=== PATIENT | male | born 1985 | race Caucasian/White ===

== ENCOUNTER → 2018-03-18 16:20 | Outpatient (CLI) | payer OTHER, SELFPAY | PROVIDERS: PCP Physician Assistant; Visit Provider Physician Assistant | DX: L60.0 Ingrowing nail (principal) | CPT/HCPCS: 87070; 87077; 87147; 87186; 87205 ==

== ENCOUNTER 2025-02-05 11:46 | Emergency (ER) | payer OTHER, SELFPAY ==
[2025-02-05 11:54] VITALS: BP 127/68; PULSE 80; RESP 16; TEMP 36.4; O2SAT 100
--- NOTE | 2025-02-05 11:56 | EKG_ITS ---
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
--- NOTE | 2025-02-05 11:56 | ED.SYNCOPE ---
HPI - Syncope General Chief Complaint: Syncope Stated Complaint: Syncopal Episode Time Seen by Provider: 02/05/25 11:56 Source: patient Mode of arrival: EMS History of Present Illness HPI narrative: Patient is a 39-year-old male with history of Asperger's disorder presenting with syncopal episode. Patient states that he had not eaten much on the morning of presentation and had not had much water to drink although did endorse caffeine intake he was at mosque when he felt lightheaded and sat down, subsequently had a syncopal episode. Patient denies any traumatic injury incurred as he had already been seated. He does state that this has happened previously although not frequently. Patient denies any chest pain, shortness of breath, palpitations. He otherwise denies having been recently ill, no alcohol intake on the evening prior. MD complaint: loss of consciousness Description of event: tonic-clonic movements, focal shaking and incontinence Prodromal symptoms: lightheaded and nausea/vomiting Related Data Home Medications ?Medication ?Instructions ?Recorded ?Confirmed No Known Home Medications 03/18/18 04/17/21 Allergies Allergy/AdvReac Type Severity Reaction Status Date / Time No Known Allergies Allergy Uncoded 02/05/25 11:56 Review of Systems Review of Systems ROS Unobtainable: All systems reviewed & are unremarkable except as noted in HPI and below Constitutional Constitutional: Denies fever(s) and Denies frequent falls ENT Ears, Nose, Mouth, and Throat: Denies dizziness Cardiovascular Cardiovascular: Denies chest pain, Reports syncope and Denies dyspnea Respiratory Respiratory: Denies dyspnea Gastrointestinal Gastrointestinal: Denies nausea and Denies vomiting Genitourinary Genitourinary: Denies dysuria Musculoskeletal Musculoskeletal: Denies muscle weakness and Denies myalgias Neurologic Neurologic: Denies dizziness, Reports syncope and Denies frequent falls Patient History Social History Smoking Status: Never smoker second hand exposure: No alcohol intake: current substance use type: does not use Exam Narrative Exam Narrative: GENERAL: in no distress, not toxic not dyspneic HEAD: Normocephalic. EYES: Pupils equal round ENT: Mucous membranes moist. NECK: Trachea midline. CARDIOVASCULAR: Regular rate and rhythm RESPIRATORY: Clear to auscultation. Breath sounds equal bilaterally. No wheezes, rales, or rhonchi. GASTROINTESTINAL: Abdomen soft, non-tender EXTREMITIES: No gross deformities. BACK: No flank tenderness. NEURO: AOx4. Clear speech SKIN: Warm and dry PSYCH: Not anxious, is cooperative Initial Vital Signs Initial Vital Signs: Vital Signs Temperature 97.6 F 02/05/25 11:54 Pulse Rate 80 02/05/25 11:54 Respiratory Rate 16 02/05/25 11:54 Blood Pressure 127/68 02/05/25 11:54 Pulse Oximetry 100 02/05/25 11:54 Oxygen Delivery Method Room Air 02/05/25 11:54 Const General: cooperative, well developed, well groomed and No acute distress [facility] Head: normocephalic and atraumatic Course Orders Ordered: ED Orders 02/05/25 11:50 BMP [Basic Metabolic Panel] Stat CBC Auto Diff [Complete Blood Count AUTO DIFF] Stat 02/05/25 11:56 EKG-12 Lead Stat Discontinued Medications Potassium Chloride (Potassium Chloride 20 Meq Tab) 40 meq PO NOW ONE Stop: 02/05/25 12:46 Last Admin: 02/05/25 12:56 Dose: 40 meq Documented By: MARCELINA Vital Signs Vital signs: Vital Signs - 8 hr 02/05/25 13:05 Temperature 98.4 F Pulse Rate 86 Respiratory Rate 16 Blood Pressure 138/85 Pulse Oximetry 100 MDM - Syncope Differential Diagnosis Differential diagnosis: Likely syncope due to orthostatic hypotension, vasovagal syncope, complete atrioventricular block, pulmonary embolism and dehydration Lab Data Attestation: I reviewed the patient's lab results. Lab results narrative: Notable for hypokalemia at 3.1 and mild hyperglycemia at 119 -plan for potassium repletion 02/05/25 11:50 02/05/25 11:50 Labs: Lab Results 02/05/25 Range/Units 11:50 WBC 9.2 (4.5-11.0) X10^3/uL RBC 5.29 (4.5-5.9) X10^6/uL Hgb 15.9 (13.5-17.5) g/dL Hct 46.0 (41-53) % MCV 87.0 (80-100) fL MCH 30.0 (26-34) PG MCHC 34.5 (30-36) % RDW 13.1 (11.6-14.8) % Plt Count 435 H (150-400) X10^3/uL Neut % (Auto) 61.9 (50-75) % Lymph % (Auto) 30.5 (25-40) % Hendricks % (Auto) 5.7 (3-14) % Eos % (Auto) 1.3 L (2-4) % Baso % (Auto) 0.6 (0-2) % Neut # (Auto) 5700 (0658-5569) /uL Lymph # (Auto) 2800 (1804-8215) /uL Hendricks # (Auto) 500 (0-900) /uL Eos # (Auto) 100 (0-450) /uL Baso # (Auto) 100 (0-100) /uL Sodium 137 (137-145) mmol/L Potassium 3.1 L (3.4-5.1) mmol/L Chloride 101 (98-107) mmol/L Carbon Dioxide 24 (22-32) mmol/L BUN 12 (9-20) mg/dL Creatinine 0.81 (0.66-1.25) mg/dL Estimated GFR > 60 (>60) mL/min BUN/Creatinine Ratio 14.8 (6-22) Glucose 119 H (70-99) mg/dL Calcium 9.4 (8.4-10.2) mg/dL Point of Care Testing Glucose POC 93 ECG Data Attestation: I personally reviewed and interpreted this ECG as follows: Prior ECG tracings: available for review Interpretation: EKG demonstrating sinus rhythm at a rate of 76, OK 202, QTC 436, notable for nonspecific ST segment changes which are similar when compared to prior from 02/03/2017 on independent review MDM Narrative Medical decision making narrative: History and exam as above. Patient presenting with syncope most consistent with vasovagal versus hypovolemic syncope. In the setting of prodromal symptoms, less likely to represent cardiac pathology. Similarly no visualized seizure activity and patient was not postictal nor with incontinence or oral pharynx trauma. Differential for presentation includes anemia, electrolyte abnormality, arrhythmia. Without focal neurological deficits or risk factors suggestive of CVA, we will defer CT imaging. Discharge Plan Departure Patient Disposition: Home Clinical Impression: Vasovagal syncope, Hypokalemia Instructions: DI for Syncope in Adults (Fainting) Activity Restrictions/Additional Instructions: You were seen in the emergency department after your fainting episode. Evaluation here included examination, labs and EKG. You were noted to have slightly low potassium which we have repleted orally here however we do recommend increasing your dietary potassium for the next week and following up closely with your primary care provider for re-evaluation including repeat lab work. If you develop recurrent lightheadedness, palpitations, chest pain, syncope, or other symptoms that are concerning to you, please return to the emergency department for further evaluation. Prescriptions: No Action No Known Home Medications Referrals: Miscellaneous,Doctor, [Primary Care Provider, Medical] Stand Alone Forms: Patient Portal/API
[2025-02-05 12:08] LABS: Add Manual Diff / Slide Review NO; Hematocrit 46.0 % (41-53); Hemoglobin 15.9 g/dL (13.5-17.5); Lymphocytes Absolute Auto 2800 /uL (1100-4500); Mean Corpuscular HGB Conc 34.5 % (30-36); Mean Corpuscular Hemoglobin 30.0 PG (26-34); Mean Corpuscular Volume 87.0 fL (80-100); Platelet Count 435 X10^3/uL (150-400)
[2025-02-05 12:18] LABS: Blood Urea Nitrogen 12 mg/dL (9-20); Calcium 9.4 mg/dL (8.4-10.2); Carbon Dioxide 24 mmol/L (22-32); Chloride 101 mmol/L (98-107); Estimated Glomerular Filt Rate > 60 mL/min (>60); Glucose 119 mg/dL (70-99); HEMOLYSIS < 15 (0-50); Potassium 3.1 mmol/L (3.4-5.1); Sodium 137 mmol/L (137-145)
[2025-02-05] MEDS: POTASSIUM CHLORIDE 20 MEQ TAB 40 MEQ PO (12:56)
[2025-02-05 13:05] VITALS: BP 138/85; PULSE 86; RESP 16; TEMP 36.9; O2SAT 100
== END 2025-02-05 13:07 | disposition home or self-care (01) ==
PROVIDERS: Emergency Provider Student in an Organized Health Care Education/Training Program
DX: R55 Syncope and collapse (principal); E87.6 Hypokalemia
CPT/HCPCS: 80048; 85025; 93005; 99283; 99284